=== PATIENT | male | born 1990 | race Hispanic/Latino ===

== ENCOUNTER 2017-04-25 00:29 | Emergency (ER) | payer OTHER, SELFPAY ==
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
== END 2017-04-25 01:57 ==
LOC: ERS 00:29
DX: S00.03XA Contusion of scalp, initial encounter (principal); F17.210 Nicotine dependence, cigarettes, uncomplicated; V49.9XXA Car occupant (driver) (passenger) injured in unspecified traffic accident, initial encounter
CPT/HCPCS: 70450; 72125; 99406

== ENCOUNTER 2017-04-29 11:14 | Emergency (ER) | payer SELFPAY | END 2017-04-29 12:41 | disposition home or self-care (01) | LOC: ERS 11:14 | DX: S00.03XA Contusion of scalp, initial encounter (principal); F17.210 Nicotine dependence, cigarettes, uncomplicated; V89.2XXA Person injured in unspecified motor-vehicle accident, traffic, initial encounter | CPT/HCPCS: 99282 ==